=== PATIENT | female | born 1960 | race Asian ===

== ENCOUNTER 2019-10-17 09:04 | Day surgery (SDC) | payer OTHER ==
[~2019-10-17] VITALS: Ht 160 cm; Wt 84.0 kg
[2019-10-17] MEDS ORDERED: SODIUM CHLORIDE 0.9% 500 ML IV PRN (09:27)
[2019-10-17] MEDS ORDERED: RIVA20TA PO (10:01)
[2019-10-17] MEDS ORDERED: AMLO10TA8 PO (10:01)
[2019-10-17] MEDS ORDERED: METF500T27 PO (10:02)
[2019-10-17] MEDS ORDERED: METO-95 PO (10:04)
[2019-10-17] MEDS ORDERED: GABA600T7 PO (10:04)
[2019-10-17] MEDS ORDERED: DICL50TA2 PO (10:06)
[2019-10-17 10:07] VITALS: BP 140/79
[2019-10-17] MEDS ORDERED: ATOR10TA9 PO (10:18)
[2019-10-17] MEDS ORDERED: ALBU18HF INH (10:19)
[2019-10-17] MEDS ORDERED: CHOL400C11 PO (10:20)
[2019-10-17 10:27] LABS: ALBUMIN 3.8 g/dL (3.4-5.0); ANION GAP 10 mmol/L (5-15); CALCIUM 8.9 mg/dL (8.5-10.1); CHLORIDE 107 mmol/L (98-107)
[2019-10-17 10:30] LABS: BASOPHILS # (AUTO) 0.04 x10^3/uL (0-0.1); BASOPHILS % (AUTO) 1 % (0-1); EOSINOPHILS # (AUTO) 0.59 x10^3/uL (0-0.4); EOSINOPHILS % (AUTO) 8 % (1-7); LYMPHOCYTES # (AUTO) 1.99 x10^3/uL (1-3.4); LYMPHOCYTES % (AUTO) 28 % (22-44); MD NO; MEAN CORPUSCULAR HEMOGLOBIN 28.9 pg (27.0-34.8); MEAN CORPUSCULAR HGB CONC 33.3 g/dL (32.4-35.8); MEAN CORPUSCULAR VOLUME 86.8 fL (80-100); MEAN PLATELET VOLUME 8.6 fL (7.4-10.4); MONOCYTES # (AUTO) 0.51 x10^3/uL (0.2-0.8); MONOCYTES % (AUTO) 7 % (2-9); NEUTROPHILS % (AUTO) 56 % (42-75); PLATELET COUNT 219 x10^3/uL (130-400); RED CELL DISTRIBUTION WIDTH 13.9 % (9.6-15.2)
[2019-10-17 10:32] LABS: ALANINE AMINOTRANSFERASE 33 U/L (12-78); ALKALINE PHOSPHATASE 123 U/L (45-117); CHOL/HDL RATIO 3.3; CHOLESTEROL, TOTAL 163 mg/dL (140-239); CREATININE 0.64 mg/dL (0.55-1.02); HDL CHOL % 31 % (28-40); HDL CHOLESTEROL (DIRECT) 50 mg/dL (40-60); LDL CHOLESTEROL,CALCULATED 68 mg/dL (54-169); LDL/HDL RATIO 1.4 (0.5-3.0); TOTAL PROTEIN 7.6 g/dL (6.4-8.2); TRIGLYCERIDES 224 mg/dL (50-200); VLDL CHOLESTEROL 45 mg/dL (0-25)
[2019-10-17] MEDS ORDERED: PROPOFOL 10 MG/ML, 20ML ONE (11:01)
== END 2019-10-17 11:52 | disposition home or self-care (01) ==
LOC: CACL 09:04
PROVIDERS: ATTEND Internal Medicine Cardiovascular Disease
DX: I48.91 Unspecified atrial fibrillation (principal); I10 Essential (primary) hypertension; E11.9 Type 2 diabetes mellitus without complications; M19.90 Unspecified osteoarthritis, unspecified site; E78.5 Hyperlipidemia, unspecified; F41.9 Anxiety disorder, unspecified; F32.9 Major depressive disorder, single episode, unspecified; J45.909 Unspecified asthma, uncomplicated; Z79.01 Long term (current) use of anticoagulants; Z79.899 Other long term (current) drug therapy; Z79.82 Long term (current) use of aspirin; Z79.84 Long term (current) use of oral hypoglycemic drugs; Z90.710 Acquired absence of both cervix and uterus; Z82.49 Family history of ischemic heart disease and other diseases of the circulatory system; Z83.3 Family history of diabetes mellitus
CPT/HCPCS: 36415; 80053; 80061; 83036; 84443; 85025; 92960; J2704

== ENCOUNTER → 2019-11-11 | Outpatient (CLI) | payer OTHER ==
[~2019-11-11] MED LIST: ALBU18HF INH; AMLO10TA8 PO; ATOR10TA9 PO; CHOL400C11 PO; DICL50TA2 PO; GABA600T7 PO; METF500T27 PO; METO-95 PO; REGADENOSON 0.4 MG/5 ML SYRINGE ONE; RIVA20TA PO
== END | disposition home or self-care (01) ==
LOC: CFH 06:47
PROVIDERS: ATTEND Internal Medicine Cardiovascular Disease
DX: I08.1 Rheumatic disorders of both mitral and tricuspid valves (principal); I48.91 Unspecified atrial fibrillation; E11.9 Type 2 diabetes mellitus without complications; I10 Essential (primary) hypertension
CPT/HCPCS: 78452; 93017; 93306; A9502; J2785

== ENCOUNTER 2020-01-30 06:16 | Day surgery (SDC) | payer OTHER ==
[~2020-01-30] VITALS: Ht 160 cm; Wt 83.6 kg
[~2020-01-30 06:16] MED LIST changes: -REGADENOSON 0.4 MG/5 ML SYRINGE ONE
[2020-01-30 06:43] VITALS: BP 121/80
[2020-01-30 07:26] LABS: ANION GAP 6 mmol/L (5-15); CALCIUM 9.5 mg/dL (8.5-10.1); CHLORIDE 109 mmol/L (98-107)
[2020-01-30 07:48] LABS: INTERNATIONAL NORMALIZED RATIO 1.08 (0.93-1.1); PROTHROMBIN TIME 11.1 Seconds (9.6-11.5)
[2020-01-30] MEDS ORDERED: PROPOFOL 10 MG/ML, 20ML ONE (08:05)
== END 2020-01-30 08:39 | disposition home or self-care (01) ==
LOC: CACL 06:16
PROVIDERS: ATTEND Internal Medicine Clinical Cardiac Electrophysiology
DX: I48.19 Other persistent atrial fibrillation (principal); I10 Essential (primary) hypertension; E78.5 Hyperlipidemia, unspecified; E11.9 Type 2 diabetes mellitus without complications; J45.909 Unspecified asthma, uncomplicated; Z79.01 Long term (current) use of anticoagulants; Z79.84 Long term (current) use of oral hypoglycemic drugs; Z79.899 Other long term (current) drug therapy
CPT/HCPCS: 36415; 80048; 85610; 92960; 93005; J2704

== ENCOUNTER 2020-10-05 14:21 | Inpatient (IN) | payer OTHER ==
[~2020-10-05] VITALS: Ht 160 cm; Wt 85.0 kg
[~2020-10-05 14:21] MED LIST changes: +AMLO-211 PO; -AMLO10TA8 PO
[2020-10-05 15:05] LABS: BASOPHILS % (AUTO) 1 % (0-1); EOSINOPHILS % (AUTO) 3 % (1-7); LYMPHOCYTES % (AUTO) 20 % (22-44); MEAN PLATELET VOLUME 8.1 fL (7.4-10.4); MONOCYTES % (AUTO) 7 % (2-9); NEUTROPHILS % (AUTO) 69 % (42-75); PLATELET COUNT 229 x10^3/uL (130-400); RED BLOOD COUNT 4.98 x10^6/uL (3.82-5.3); RED CELL DISTRIBUTION WIDTH 13.8 % (9.6-15.2)
[2020-10-05 15:09] LABS: MD NO
[2020-10-05 15:16] LABS: ALANINE AMINOTRANSFERASE 44 U/L (12-78); ALBUMIN 3.9 g/dL (3.4-5.0); ANION GAP 5 mmol/L (5-15); CHLORIDE 107 mmol/L (98-107); CREATININE 0.67 mg/dL (0.55-1.02)
[2020-10-05 15:26] LABS: ALKALINE PHOSPHATASE 120 U/L (45-117); BILIRUBIN,TOTAL 0.5 mg/dL (0.2-1.0); TOTAL PROTEIN 7.7 g/dL (6.4-8.2)
[2020-10-05 15:29] LABS: TROPONIN I 0.231 ng/mL (0.000-0.045)
[2020-10-05] MEDS ORDERED: DILTIAZEM 5 MG/ML, 5ML IVPush STA (15:55)
[2020-10-05] MEDS ORDERED: ASPIRIN 81 MG TABLET CHEW ONE (16:18)
[2020-10-05] MEDS ORDERED: ASPIRIN 81 MG TABLET CHEW PO ONE (16:30)
[2020-10-05] MEDS ORDERED: DILTIAZEM 125 MG in SODIUM CHLORIDE 0.9% 100 ML IV SCH ×2 (16:30→18:30)
[2020-10-05] MEDS ORDERED: SODIUM CHLORIDE FLUSH 10ML SYR IVF ONE (16:30)
--- NOTE | 2020-10-05 16:39 | NUR ---
PT WITH AFIB RVR, PIV EST AND PT MED WITH DILT NOTED WITH EFFECT. TOLLERATED WELL, BP STABLE. DR SHETTY AT BEDSIDE, PLAN FOR DILT GTT.
[2020-10-05 17:42] VITALS: BP 134/88
[2020-10-05] MEDS ORDERED: DOCUSATE 100 MG CAPSULE PO PRN (18:30)
[2020-10-05] MEDS ORDERED: ACETAMINOPHEN 325 MG TABLET PO PRN (18:30)
[2020-10-05] MEDS ORDERED: POLYETHYLENE GLYCOL 17 GM PACKET PO PRN (18:30)
[2020-10-05] MEDS ORDERED: ONDANSETRON 2MG/ML, 2ML IVPush PRN (18:30)
[2020-10-05] MEDS ORDERED: ALBUTEROL SULFATE 2.5 MG/3 ML NPPB PRN (18:30)
[2020-10-05 18:31] VITALS: BP 145/90
[2020-10-05] MEDS ORDERED: DILTIAZEM 5 MG/ML, 5ML IVPush PRN (19:00)
[2020-10-05] MEDS ORDERED: DEXTROSE 4 GM TAB.CHEW PO PRN (19:30)
[2020-10-05] MEDS ORDERED: DEXTROSE 50%, 50ML SYRINGE IVPush PRN (19:30)
[2020-10-05] MEDS ORDERED: GLUCAGON 1 MG IM PRN (19:30)
[2020-10-05] MEDS: SODIUM CHLORIDE FLUSH 10ML SYR IVF SCH (21:00)
[2020-10-05] MEDS ORDERED: GABAPENTIN 100 MG CAPSULE PO SCH (21:00)
[2020-10-05] MEDS ORDERED: ATORVASTATIN 10 MG TABLET PO SCH (21:00)
[2020-10-05] MEDS: INSULIN LISPRO 100 UNITS/ML, PEN SQ-INSULIN SCH (21:00)
[2020-10-05 21:25] LABS: TROPONIN I 0.197 ng/mL (0.000-0.045)
[2020-10-05] MEDS ORDERED: AMLO-210 PO (21:37)
[2020-10-05] MEDS ORDERED: RIVAROXABAN 20 MG TABLET PO SCH (22:00)
[2020-10-05] MEDS ORDERED: GABAPENTIN 300 MG CAPSULE PO SCH (22:00)
[2020-10-06 01:25] VITALS: BP 118/74
[2020-10-06 01:55] LABS: MICROSCOPIC NOT IND
[2020-10-06 03:34] LABS: ALBUMIN 3.4 g/dL (3.4-5.0); ANION GAP 4 mmol/L (5-15); CALCIUM 8.7 mg/dL (8.5-10.1); CHLORIDE 109 mmol/L (98-107)
[2020-10-06 03:40] LABS: ALANINE AMINOTRANSFERASE 38 U/L (12-78); ALKALINE PHOSPHATASE 109 U/L (45-117); BILIRUBIN,TOTAL 0.9 mg/dL (0.2-1.0); CHOL/HDL RATIO 2.7; CHOLESTEROL, TOTAL 129 mg/dL (140-239); CREATININE 0.61 mg/dL (0.55-1.02); HDL CHOL % 36 % (28-40); HDL CHOLESTEROL (DIRECT) 47 mg/dL (40-60); LDL CHOLESTEROL,CALCULATED 41 mg/dL (54-169); LDL/HDL RATIO 0.9 (0.5-3.0); TOTAL PROTEIN 6.9 g/dL (6.4-8.2); TRIGLYCERIDES 206 mg/dL (50-200); TROPONIN I 0.233 ng/mL (0.000-0.045); VLDL CHOLESTEROL 41 mg/dL (0-25)
[2020-10-06 05:49] LABS: BASOPHILS % (AUTO) 1 % (0-1); EOSINOPHILS % (AUTO) 3 % (1-7); LYMPHOCYTES % (AUTO) 20 % (22-44); MD NO; MEAN CORPUSCULAR HEMOGLOBIN 29.1 pg (27.0-34.8); MEAN CORPUSCULAR HGB CONC 33.7 g/dL (32.4-35.8); MEAN PLATELET VOLUME 8.1 fL (7.4-10.4); MONOCYTES % (AUTO) 6 % (2-9); NEUTROPHILS % (AUTO) 70 % (42-75); PLATELET COUNT 200 x10^3/uL (130-400); RED BLOOD COUNT 4.64 x10^6/uL (3.82-5.3); RED CELL DISTRIBUTION WIDTH 13.9 % (9.6-15.2)
[2020-10-06 06:58] VITALS: BP 122/77
[2020-10-06 08:10] VITALS: BP 111/72
[2020-10-06] MEDS: INSULIN LISPRO 100 UNITS/ML, PEN SQ-INSULIN SCH ×3 (08:12→17:37)
[2020-10-06] MEDS ORDERED: METOPROLOL SUCCINATE 100 MG TAB.ER.24H PO SCH ×2 (08:30→09:00)
[2020-10-06] MEDS: SODIUM CHLORIDE FLUSH 10ML SYR IVF SCH (08:45)
[2020-10-06] MEDS ORDERED: RIVAROXABAN 20 MG TABLET PO SCH (09:00)
[2020-10-06 09:08] LABS: TROPONIN I 0.203 ng/mL (0.000-0.045)
[2020-10-06] MEDS ORDERED: REGADENOSON 0.4 MG/5 ML SYRINGE ONE (09:28)
[2020-10-06 12:36] VITALS: BP 127/81
== END 2020-10-06 18:27 | disposition home or self-care (01) | DRG 281 ==
LOC: SUATTDRO 16:03 → ED 16:15 → EDIP 16:21 → 5SO 17:34
PROVIDERS: ADMIT Family Medicine; ATTEND Family Medicine
DX: I48.0 Paroxysmal atrial fibrillation (principal); I21.A1 Myocardial infarction type 2; D68.69 Other thrombophilia; I48.20 Chronic atrial fibrillation, unspecified; D72.829 Elevated white blood cell count, unspecified; E11.40 Type 2 diabetes mellitus with diabetic neuropathy, unspecified; E78.1 Pure hyperglyceridemia; E78.5 Hyperlipidemia, unspecified; R00.2 Palpitations; F32.9 Major depressive disorder, single episode, unspecified; I10 Essential (primary) hypertension; I87.2 Venous insufficiency (chronic) (peripheral); Z79.01 Long term (current) use of anticoagulants; Z90.710 Acquired absence of both cervix and uterus
CPT/HCPCS: 36415; 71045; 78452; 80053; 80061; 81003; 82962; 83880; 84443; 84484; 85025; 93005; 93017; 93306; 96374; G0378; J2785; A9502